=== PATIENT | male | born 1965 | race Caucasian/White ===

== ENCOUNTER 2021-04-14 06:46 | Emergency (ER) | payer OTHER ==
[~2021-04-14] VITALS: Ht 167.6 cm; Wt 72.6 kg
[~2021-04-14 06:46] MED LIST: ALLO100T21 PO; GABA300C PO; INDO-323 PO; NAPR-54 PO; SIMV20TA1 PO; VIC PO
[2021-04-14 06:48] VITALS: BP 180/107
--- NOTE | 2021-04-14 06:55 | NUR ---
DR. ARREGUIN EXAMINING PT IN TRIAGE
--- NOTE | 2021-04-14 06:58 | NUR ---
PT TAKEN TO BED 7
[2021-04-14] MEDS ORDERED: HYDROcodone/APAP 5/325 MG 1 TAB TAB PO ONE (07:00)
[2021-04-14] MEDS ORDERED: KETOROLAC 60 MG/2 ML VIAL IM ONE (07:00)
--- NOTE | 2021-04-14 07:00 | NUR ---
MEDICATED PER ORDERS PENDING GIVING REPORT TO ONCOMING NURSE.
--- NOTE | 2021-04-14 07:15 | NUR ---
INFORMED PATIENT GIVEN MADICATION BUT NOT CHARTED.
--- NOTE | 2021-04-14 07:15 | NUR ---
REPORT RECIAVED DIANA CAREY FOR TRANSFER OF CARE.
--- NOTE | 2021-04-14 07:15 | NUR ---
REPORT TO ONCOMING NURSE
--- NOTE | 2021-04-14 07:32 | NUR ---
XREY AT BEDSIDE.
[2021-04-14] MEDS ORDERED: MORPHINE SULFATE 4 MG/ML SYR IM ONE (08:05)
--- NOTE | 2021-04-14 08:46 | NUR ---
DR ARREGUIN AT BEDSIDE.
[2021-04-14] MEDS ORDERED: HYDR-5080 PO (08:50)
[2021-04-14] MEDS ORDERED: NAPR-54 PO (08:50)
--- NOTE | 2021-04-14 09:12 | NUR ---
Patient discharged with v/s stable. Written and verbal after care instructions given and explained. Patient alert, oriented and verbalized understanding of instructions. Wheel Chair Assisted with steady gait. All questions addressed prior to discharge. ID band removed. Patient advised to follow up with PMD. Rx of HYDROCODONE/ACETAMINOHEN,NAPROXEN given. Opportunity to ask questions provided and answered.
== END 2021-04-14 09:11 | disposition home or self-care (01) ==
LOC: MED 06:46
DX: M13.862 Other specified arthritis, left knee (principal); Z98.890 Other specified postprocedural states; Z79.899 Other long term (current) drug therapy
CPT/HCPCS: 73562; 96372; 99283; J1885; J2270

== ENCOUNTER 2021-04-18 14:05 | Emergency (ER) | payer OTHER ==
[~2021-04-18] VITALS: Ht 170.2 cm; Wt 70.8 kg
[~2021-04-18 14:05] MED LIST changes: +HYDR-5080 PO; -VIC PO
[2021-04-18 14:16] VITALS: BP 93/46
[2021-04-18] MEDS ORDERED: HYDROcodone/APAP 5/325 MG 1 TAB TAB PO ONE (14:40)
[2021-04-18] MEDS ORDERED: NAPR-54 PO (16:43)
[2021-04-18 16:50] VITALS: BP 164/82
[2021-04-18] MEDS ORDERED: fentaNYL citrate 0.05 MG/ML VIAL NS ONE (17:05)
== END 2021-04-18 17:15 | disposition home or self-care (01) ==
LOC: MED 14:05
DX: M25.562 Pain in left knee (principal); M25.552 Pain in left hip; Z79.899 Other long term (current) drug therapy; Z98.890 Other specified postprocedural states
CPT/HCPCS: 73700; 93971; 99285; J3010; Q0092